=== PATIENT | female | born 1975 | race Caucasian/White ===

== ENCOUNTER 2017-06-13 11:05 | Inpatient (IN) ==
--- NOTE | 2017-06-12 22:08 | Discharge Summary ---
<GaylamartínSophia syed Teri - Last Filed: 06/12/17 22:04> Date of Encounter: 06/12/17 - Discharge Diagnosis (1) Arthritis of knee, left Priority: Primary Status: Acute (2) Status post total knee replacement, left Priority: Primary Status: Acute (3) COPD (chronic obstructive pulmonary disease) Priority: Secondary Status: Acute Qualifiers: COPD type: unspecified COPD Qualified Code(s): J44.9 - Chronic obstructive pulmonary disease, unspecified (4) Obesity Priority: Secondary Status: Chronic Qualifiers: Obesity type: due to excess calories Obesity classification: unspecified obesity classification Serious obesity comorbidity presence: without serious comorbidity Qualified Code(s): E66.09 - Other obesity due to excess calories; Z68.33 - Body mass index (BMI) 33.0-33.9, adult - Discharge Medications Home Medications: Aspirin Enteric Coated [Aspirin EC] 325 mg PO DAILY #21 tablet. 06/12/17 [Rx] OxyCODONE Immed Rel [Roxicodone 5 MG] 5 - 10 mg PO Q6HR PRN #40 tablet 06/12/17 [Rx] Acetaminophen [Tylenol] 1,000 mg PO Q6HR PRN 06/13/17 [History] L. Acidophilus/Pectin, [place] [Acidophilus Probiotic Capsule] 1 cap PO DAILY [History] Allergies/Adverse Reactions: Allergies No Known Allergies Allergy (Verified 06/13/17 11:57) Primary care physician: Sofi Huston DO - Patient Status Disposition: Transfer Inpatient Rehab Fac Condition: Good - Discharge Instructions Follow Up With: Sofi Huston DO [Resident] - - Hospital Course Hospital course: Ms. Ron is a 42 year old female - Time Spent with Patient Total time spent providing and/or coordinating discharge services: <Lucian Grier - Last Filed: 06/15/17 08:59> Date of Encounter: 06/15/17 Time of Encounter: 08:58 - Discharge Diagnosis (1) Arthritis of knee, left Priority: Primary Status: Chronic (2) Status post total knee replacement, left Priority: Primary Status: Acute (3) COPD (chronic obstructive pulmonary disease) Priority: Secondary Status: Chronic Qualifiers: COPD type: unspecified COPD Qualified Code(s): J44.9 - Chronic obstructive pulmonary disease, unspecified (4) Obesity Priority: Secondary Status: Chronic Qualifiers: Obesity type: due to excess calories Obesity classification: adult class 1 (BMI 30 ? 34.9) Serious obesity comorbidity presence: without serious comorbidity Body mass index: BMI 33.0-33.9 Qualified Code(s): E66.09 - Other obesity due to excess calories; Z68.33 - Body mass index (BMI) 33.0-33.9, adult (5) Acute blood loss anemia Priority: Primary Status: Acute Primary care physician: PCP NONE - Patient Status Functional capacity at discharge: uses cane/walker Overall status at discharge: patient is progressing back to baseline - Hospital Course Hospital course: Ms. Ron is a 42 year old female status post total knee replacement. Patient with hemoglobin 8.0 asymptomatic. The patient had an uneventful postoperative course. They received antibiotics and physical therapy and were discharged in stable condition. There will follow -up in the office in 2 weeks. - Time Spent with Patient Total time spent providing and/or coordinating discharge services:
--- NOTE | 2017-06-13 11:20 | Physician Discharge Referral ---
<Sophia Hall L - Last Filed: 06/13/17 11:18> ExtendedCare Referral Info Transfer To: [facility] Provider in Charge: Provider in Charge after Transfer: PCP Institutional Level of Care: Skilled - Diagnosis (1) Arthritis of knee, left Priority: Primary Status: Acute (2) Status post total knee replacement, left Priority: Primary Status: Acute (3) COPD (chronic obstructive pulmonary disease) Priority: Secondary Status: Acute (4) Obesity Priority: Secondary Status: Chronic Expected Duration of Placement: < 30 days Prognosis: Good Aware of Diagnosis: Patient Aware of Prognosis: Patient - Transfer Medications Home Medications: Aspirin Enteric Coated [Aspirin EC] 325 mg PO DAILY #21 tablet. 06/12/17 [Rx] OxyCODONE Immed Rel [Roxicodone 5 MG] 5 - 10 mg PO Q6HR PRN #40 tablet 06/12/17 [Rx] Acetaminophen [Tylenol] 1,000 mg PO Q6HR PRN 06/13/17 [History] L. Acidophilus/Pectin, [place] [Acidophilus Probiotic Capsule] 1 cap PO DAILY [History] Allergies/Adverse Reactions: Allergies No Known Allergies Allergy (Verified 06/13/17 11:57) - Respiratory Orders None Smoking Cessation: Smoking cessation has been advised. For more information, call the [employer] Tobacco Quit Line at 5-196-LNZJ-NOW. - Ancillary Orders May use pressure relief devices daily prn, May go on CHRISTIANO w/family/respon constitution party w /meds at nurse discretion PRN, May consult with Dentist, Director Of Land Acquisition, Tow Bar Driver PRN - Mobility Orders Chair, Ambulate - Rehabiliation Orders Rehab Potential: Good Rehab Orders: ROM Exercises, Evaluation for Physical Therapy, Evaluation for Occupational Therapy - Treatments Skin tear care topically daily PRN per policy List/Other: Left TKR Opsite dressing, leave intact until first post-operative visit. If dressing becomes >50% saturated, contact office, remove dressing and place appropriate dressing in its place. Do not allow for dressing to get wet. Jarrod in place. Plan to remove day #14-21 PT: Precautions x 6 weeks - Total Knee Precautions Apply cold therapy wrap 3-6x/day for 20 minutes at a time. Encourage ambulation throughout the day and incentive spirometer 10x/hour. Elevate affected extremity above heart as tolerated. Brace: Keep knee immobilizer on at night x 2 weeks. - Diet Orders Regular CERTIFICATION: I certify that the transfer of the above named patient to an Extended Care Facility is necessary for the continuing treatment of the diagnosis listed. The above information is true and accurate reflection of patient's current condition. Confidential - Redisclosure prohibited without a patient's written consent. <Lucian Grier - Last Filed: 06/15/17 08:58> - Diagnosis (1) Arthritis of knee, left Status: Chronic (2) Status post total knee replacement, left Status: Acute (3) COPD (chronic obstructive pulmonary disease) Status: Chronic (4) Obesity Status: Chronic - Respiratory Orders Smoking Cessation: Smoking cessation has been advised. For more information, call the [place] Tobacco Quit Line at 8-879-KLVG-NOW. CERTIFICATION: I certify that the transfer of the above named patient to an Extended Care Facility is necessary for the continuing treatment of the diagnosis listed. The above information is true and accurate reflection of patient's current condition. Confidential - Redisclosure prohibited without a patient's written consent.
--- NOTE | 2017-06-13 11:33 | History & Physical Report ---
Date of Encounter: 06/13/17 Time of Encounter: 11:33 24 Hour HP Update - Instructions Instructions: If the History and Physical is less than 30 days old and was completed prior to A.M. admission and or procedure and has NOT been updated on calendar day of procedure please complete this update prior to performing procedure. - Update Patient reports changes in Medical Condition: No Changes in examination, assessment, or condition: No Changes in Medication: No Preop tests/diagnostics Reviewed: Yes Surgery Remains Indicated: Yes Consent for Planned Operative Procedure(s) Verified: Yes - Pre-Operative Checklist Preoperative Checklist Indicated: No Prophylactic Antibiotic Ordered: Yes Is VTE Prophylaxis Indicated?: Yes
[2017-06-13] MEDS ORDERED: CeFAZolin Pre 2,000 MG/100 ML 2,000 MG/100 ML BAG IVPB ONE (11:44)
[2017-06-13] MEDS ORDERED: Albuterol 2.5 MG/3 ML NEBULIZER IH ONE (11:44)
[2017-06-13] MEDS ORDERED: Ringers Solution, Lactated 1,000 ML IVC SCH ×2 (11:45→17:24)
--- NOTE | 2017-06-13 11:54 | Anesthesia Evaluation PreOp ---
Date of Encounter: 06/13/17 Time of Encounter: 11:52 - Past History Planned Operation: Left total knee Cardiac History: Denies any Significant Hx Pulmonary History: Smoker, COPD (mild) LIVING MANAGER History: Seizures (hasn't had a seizure in several years; not on any anti- seizure medications) Other Medical History: Hepatic (Hep C) Anesthesia History: No Prior Anesthetic Complications Alcohol Use: rarely Drug use: none Medications and Allergies Ibuprofen [Motrin] 800 mg PO Q8HR PRN 10/05/16 [History] Nabumetone [Relafen] 500 mg PO BID 10/05/16 [History] TraZODone 50 mg PO BID 10/05/16 [History] Venlafaxine XR (24 HR) [Effexor XR] 37.5 mg PO DAILY 10/05/16 [History] Calcium Carb/Magnesium Hydrox [Rolaids Chewable Tablet] 1 tab PO Q4H PRN [History] Aspirin Enteric Coated [Aspirin EC] 325 mg PO DAILY #21 tablet. 06/12/17 [Rx] OxyCODONE Immed Rel [Roxicodone 5 MG] 5 - 10 mg PO Q6HR PRN #40 tablet 06/12/17 [Rx] Allergies No Known Allergies Allergy (Verified 06/13/17 11:42) - Meds/Allergy Pre-op Review Medications Reviewed: Yes Allergies Reviewed: Yes Beta Blockers on Current Med List: No Anesthesia Results - Labs Laboratory Tests 06/01/17 06/01/17 06/01/17 08:22 08:22 08:22 WBC 8.6 Hgb 16.7 H Plt Count 250 PT 10.7 INR 1.0 APTT 34.9 Sodium 140 Potassium 3.1 L Chloride 105 Carbon Dioxide 24 BUN 9 Creatinine 0.93 Est GFR ( Amer) > 60 Est GFR (Non-Af Amer) > 60 BUN/Creatinine Ratio 10 Glucose 59 L Calculated Osmolality 286 - Imaging EKG: report reviewed, image reviewed (SINUS RHYTHM POSSIBLE LEFT ATRIAL ENLARGEMENT INCOMPLETE RIGHT BUNDLE BRANCH BLOCK) Anesthesia Exam Last Vital Signs Temp 98.6 F 06/13/17 11:29 Pulse 74 06/13/17 11:29 Resp 18 06/13/17 11:29 BP 150/93 06/13/17 11:29 Pulse Ox 98 06/13/17 11:29 Weight: 97 kg NPO (# of Hours): >> 8 hrs - HEENT Pupil (Motor): Pupils equal, EOMI Mallampati: II Teeth: Normal Oral Opening: Greater than 3 - LIVING MANAGER LOC: Oriented LIVING MANAGER Motor: Normal RUE, Normal LUE, Normal RLE, Normal LLE, Normal Face - Cardiac Rhythm: Regular Murmur: None - Pulmonary Breath Sounds: bilateral Clear Respiratory Effort: Symmetrical Anesthesia Assess/Plan ASA Score: 3 Modified [place] Scale for Level of Consciousness: Cooperative, oriented, and tranquil Anesthetic Plan: General, Regional Monitoring Plan: Standard Monitors Recovery Plan: PACU
[2017-06-13] MEDS ORDERED: *HR* Propofol 200 MG/20 ML VIAL IVP ONE ×2 (13:03→14:28)
[2017-06-13] MEDS ORDERED: *HR* FentaNYL (PF) 100 MCG/2 ML VIAL ONE ×2 (13:03→14:12)
[2017-06-13] MEDS ORDERED: *HR* Midazolam HCl 2 MG/2 ML VIAL ONE (13:03)
[2017-06-13] MEDS ORDERED: Ondansetron 4 MG/2 ML VIAL ONE (13:05)
[2017-06-13] MEDS ORDERED: Dexamethasone 4 MG/ML VIAL ONE (13:05)
[2017-06-13] MEDS ORDERED: Lidocaine -MPF 2% 2 ML VIAL ONE (13:05)
[2017-06-13] MEDS ORDERED: *HR* Meperidine 25 MG/ML SYRINGE IVP PRN (13:51)
[2017-06-13] MEDS ORDERED: Ondansetron 4 MG/2 ML VIAL IVP ONE (13:51)
[2017-06-13] MEDS ORDERED: ROPIVACAINE HCL/PF 0.5% 30 ML VIAL ONE (14:03)
--- NOTE | 2017-06-13 14:35 | Anesthesia Procedures ---
Date of Encounter: 06/13/17 Time of Encounter: 14:20 Procedures: Anesthesia - Nerve Block Procedure Date: 06/13/17 Time: 14:20 Allergies/Adv Reactions: nkda Pre-op Diagnosis: Left knee pain Surgical Procedure: Left total knee Checklist: Correct Patient Identifier, Correct procedure, History checked Correct side: Left Blood Thinner: No Monitor Applied: EKG, BP, Pulse Oximetry Supplemental Oxygen via Nasal Cannula (L/min): 2 Sedation: Versed (mg): 2 Sedation: Fentanyl (mcg): 200 Indication: Post Op Analgesia Pre-op Neuro Deficits: No Block Type: Femoral, Other (IPAC) Ultrasound used: Yes Anatomy identified: Yes Visual spread of Local: Yes Neuro Stimulation: Yes Nerve Stimulator Range: 0.2 - 0.4 mA Smooth Injection of Local: Yes Pain with Injection of Local: No Prep: Chlorhexadine Needle: 22 x 50 mm Stimuplex Local: Ropivacaine Volume (cc): 30 Number of Attempts: 1 Complications: None/effective block
[2017-06-13] MEDS ORDERED: *HR* HYDROmorphone 2 MG/ML SYRINGE ONE ×2 (14:41→14:56)
[2017-06-13] MEDS ORDERED: Esmolol 100 MG/10 ML VIAL IVP ONE (15:12)
--- NOTE | 2017-06-13 15:13 | Orthopedic Operative Note ---
Date of procedure: 06/13/17 Pre-op diagnosis: Left knee arthritis Post-op diagnosis: same Procedure: Procedure: Left Total knee replacement Estimated blood loss: 500 cc Hardware: Metal and polyethylene replacement. Arthrex Femur: 4 Tibia: 5 PS insert: 12 Patella: 34 Exam Under anesthesia: Valgus alignment full flexion and extension Procedural Notes: Grade 4 arthritic changes all 3 compartments. Operative procedure: The patient was brought to the operating room and placed on the operating room table. After general anesthesia was administered the operative knee was examined. Findings were noted in the exam under anesthesia. The operative extremity was prepped and draped in sterile surgical fashion. The patient received IV antibiotics prior to skin incision. A standard midline incision was made centered over the patella. The incision was made through the skin and subcutaneous tissue. A medial parapatellar tendon approach was performed. Care was taken to preserve tissue along the medial aspect of the patella. And to protect the patella tendon. The deep MCL was released off the medial tibia. The infra patella fat pad was excised. Knee was brought into flexion. The patient was noted to have grade 4 arthritic changes all 3 compartments. The entry hole was made for the intramedullary femoral guide. The guide was seated in 6 degrees of valgus. Anterior cut was made followed by the distal cut. The ACL the PCL the medial and the lateral menisci were excised. The tibia was subluxed forward. The entry hole was made for the intramedullary tibial guide. Guide was seated to resect 2 mm off the more abnormal side. The knee was brought into flexion the distal femur was sized 4. The femoral guide was seated , the anterior cut was made followed by the posterior condylar cut, followed by the chamfer cuts. The finishing guide was seated the box cut was made and the lug holes were drilled. The tibia was sized 5, the tibial tray was seated and prepared with the large drill followed by the fin cutter. Trial reduction revealed full extension no varus valgus instability with the appropriate 12 PS Sarina. The patella was everted and cut was made at the level of the insertion of the quadriceps and patella tendon. The patella was sized 34 the guide was seated and the lug holes are drilled. Trial reduction revealed excellent patella tracking. All trial components were removed all bony surfaces were irrigated. The tibia was cemented first followed by the femur. The 12 PS Sarina was seated and the knee was brought into full extension. The patella was cemented and held in place with the patellar holding clamp. After the cement had hardened, the knee sat for 2 minutes with a Betadine saline solution. The knee was then irrigated out with 2 L of pulse irrigation. The PA close the knee. The extensor mechanism was closed with #2 FiberWire suture and #2 PDS suture. The subcutaneous tissue was then irrigated and closed deep with #1 PDS suture superficially with 0 PDS suture and skin was closed with skin giovanna. The patient was then placed in a sterile dressing and a postoperative brace extubated and transferred to recovery room in stable condition. Anesthesia: RANI Surgeon: Lucian Grier Director Information: Sophia Hall Condition: stable Disposition: PACU
[2017-06-13] MEDS: *HR* HYDROmorphone (PF) 1 MG/ML SYRINGE IVP PRN ×10 (15:53→21:23)
[2017-06-13] MEDS ORDERED: Ketorolac 30 MG/ML VIAL IVP ONE (16:00)
[2017-06-13] MEDS ORDERED: Acetaminophen IV 1,000 MG/100 ML INFUS..BTL IVPB ONE (16:01)
[2017-06-13] MEDS ORDERED: *HR* HYDROmorphone (PF) 1 MG/ML SYRINGE IVP PRN (16:35)
[2017-06-13 16:44] LABS: Hematocrit 38.7 % (35.3-44.9); Hemoglobin 13.4 g/dL (11.5-15.4)
[2017-06-13] MEDS ORDERED: *HR* Labetalol 20 MG/4 ML SYRINGE IVP ONE ×2 (16:53→16:55)
[2017-06-13] MEDS ORDERED: Lidocaine -MPF 2% 5 ML VIAL ONE (17:04)
[2017-06-13] MEDS ORDERED: MOM Conc 10 ML UD.LIQ PO PRN (17:24)
[2017-06-13] MEDS ORDERED: Naloxone 0.4 MG/ML INJ IVP PRN (17:24)
[2017-06-13] MEDS ORDERED: *HR* OxyCODONE Immed Rel 5 MG TABLET PO PRN (17:24)
[2017-06-13] MEDS ORDERED: Sennosides 8.6 MG TABLET PO PRN (17:24)
[2017-06-13] MEDS ORDERED: *HR* Enoxaparin 30 MG/0.3 ML SYRINGE SQ SCH (18:00)
[2017-06-13] MEDS: *HR* Enoxaparin 30 MG/0.3 ML SYRINGE SQ SCH (18:27)
[2017-06-13] MEDS: *HR* OxyCODONE Immed Rel 5 MG TABLET PO PRN ×2 (18:28→23:23)
[2017-06-13] MEDS: ceFAZolin 2,000 MG in D5% in Water 100 ML IVPB SCH (21:28)
[2017-06-14] MEDS: Ondansetron 4 MG/2 ML VIAL IVP PRN (00:25)
[2017-06-14] MEDS: *HR* HYDROmorphone (PF) 1 MG/ML SYRINGE IVP PRN ×7 (01:28→22:03)
[2017-06-14] MEDS: *HR* OxyCODONE Immed Rel 5 MG TABLET PO PRN ×4 (03:51→20:39)
[2017-06-14] MEDS: ceFAZolin 2,000 MG in D5% in Water 100 ML IVPB SCH (05:12)
[2017-06-14] MEDS: *HR* Enoxaparin 30 MG/0.3 ML SYRINGE SQ SCH ×2 (05:13→17:41)
[2017-06-14 06:24] LABS: Hematocrit 31.7 % (35.3-44.9)
[2017-06-14 06:42] LABS: BUN/Creatinine Ratio 16 (6-26); Blood Urea Nitrogen 13 mg/dL (7-20); Carbon Dioxide 26 mEq/L (19-29); Chloride 103 mEq/L (98-109); Glucose 110 mg/dL (70-99); Potassium 4.1 mEq/L (3.5-4.5); Sodium 135 mEq/L (136-145); eGFR For African Americans > 60 (> 60); eGFR For Non-African Americans > 60 (> 60)
[2017-06-14 06:43] LABS: Calcium 8.9 mg/dL (8.6-10.8); Osmolality,Calculated 281 (280-300)
[2017-06-14] MEDS: ACIDOPHILUS PO SCH (07:45)
[2017-06-14] MEDS: PECTIN CITRUS PO SCH (07:45)
[2017-06-14] MEDS ORDERED: Acetaminophen IV 1,000 MG/100 ML INFUS..BTL IVPB PRN (10:24)
[2017-06-14] MEDS: Ketorolac 30 MG/ML VIAL IVP PRN ×2 (12:02→19:01)
--- NOTE | 2017-06-14 12:13 | Orthopedics Progress Note ---
Date of Encounter: 06/14/17 Time of Encounter: 08:15 - Assessment and Plan (1) Arthritis of knee, left Current Visit: Yes Status: Chronic Left TKR 06/13/17 POD#1 Patient doing well, A&O in chair Vitals stable - Afebrile. H/H - Stable - 31.7 asymptomatic Plan: Continue in knee immobilizer at night x 2 weeks, Knee precautions x 6 weeks. LLE: WBAT Added Tylenol PO, Toradol for additional pain control D/C to ECF per patient request like tomorrow - awaiting Auth* (2) Status post total knee replacement, left Current Visit: Yes Status: Acute (3) COPD (chronic obstructive pulmonary disease) Current Visit: Yes Status: Chronic Qualifiers: COPD type: unspecified COPD Qualified Code(s): J44.9 - Chronic obstructive pulmonary disease, unspecified (4) Obesity Current Visit: Yes Status: Chronic Qualifiers: Obesity type: due to excess calories Obesity classification: adult class 1 (BMI 30 ? 34.9) Serious obesity comorbidity presence: without serious comorbidity Body mass index: BMI 33.0-33.9 Qualified Code(s): E66.09 - Other obesity due to excess calories; Z68.33 - Body mass index (BMI) 33.0-33.9, adult Subjective Principal diagnosis: Left TKR 06/13/17 Interval history: Left TKR 06/13/17 POD#1 Patient doing well, A&O in chair Vitals stable - Afebrile. H/H - Stable - .7 asymptomatic LLE: Minimal swelling, no erythema or ecchymosis noted. No calf tenderness or warmth noted. ROM limited. NV intact distally. Plan: Continue in knee immobilizer at night x 2 weeks, Knee precautions x 6 weeks. LLE: WBAT Added Tylenol PO, Toradol for additional pain control D/C to ECF per patient request like tomorrow - awaiting Auth* Objective Vital signs: Vital Signs Temp Pulse Resp BP Pulse Ox 06/14/17 11:02 98.0 F 101 18 150/91 96 06/14/17 06:41 98.3 F 91 20 155/81 93 06/14/17 05:00 98.2 F 97 18 119/82 99 06/14/17 00:40 98.4 F 97 17 120/86 98 06/13/17 21:36 98.1 F 107 18 117/85 95 06/13/17 18:31 98.4 F 100 16 155/98 95 06/13/17 18:09 98.5 F 101 16 130/84 93 06/13/17 17:32 98.2 F 100 15 144/97 94 06/13/17 17:17 99.5 F 114 26 134/99 94 06/13/17 17:07 95 28 142/88 95 06/13/17 16:57 95 26 138/105 94 06/13/17 16:47 99.5 F 128 28 165/121 95 06/13/17 16:37 130 28 167/112 95 06/13/17 16:27 120 22 148/104 92 06/13/17 16:17 98.3 F 109 18 139/106 96 06/13/17 16:07 121 30 143/100 95 06/13/17 15:57 122 30 121/95 95 06/13/17 15:47 97.2 F L 100 12 102/54 97 06/13/17 14:10 79 155/90 96 Intake and Output 06/13/17 06/14/17 06/14/17 23:59 07:59 15:59 Intake Total 100 / 100 500 / 500 480 / 480 Output Total 200 / 200 Balance 100 / 100 300 / 300 480 / 480 Intake: IV Fluids 100 / 100 Ancef 2,000 MG In 100 / 100 Dextrose 5% 100 ML @ 200 mls/hr IVPB Q8H [facility] Rx#: [id number] Oral 500 / 500 480 / 480 Output: Urine 200 / 200 Other: Meal Breakfast Percent of Meal Consumed 100% # Voids 2 Incision: clean and dry - Labs CBC & BMP: 06/14/17 05:54 06/14/17 05:54 Labs: Abnormal lab results Hgb 11.0 g/dL (11.5-15.4) L D 06/14/17 05:54 Hct 31.7 % (35.3-44.9) L 06/14/17 05:54 Sodium 135 mEq/L (136-145) L 06/14/17 05:54 Glucose 110 mg/dL (70-99) H 06/14/17 05:54 - VTE Documentation of Mechanical Device: Venous foot pump, device Consult Discharge Plan - Plan Referrals: Sofi Huston DO [Resident] -
--- NOTE | 2017-06-14 12:32 | Event Note ---
Date of Encounter: 06/14/17 Time of Encounter: 12:32 PCR - POD#1 - Left TKR 06/13/17 Patient seen at bedside. Pain control: Added Tylenol PO and Toradol 06/14/17 - Participating in PT. All questions and concerns addressed. Educated on use of incentive spirometer, ambulation, and hydration. Patient educated on post-operative restrictions and care. Addressed: Pain control D/C plan: Wanting ECF
[2017-06-14] MEDS: Ondansetron ODT 4 MG TAB.RAPDIS SL PRN (14:19)
[2017-06-14] MEDS ORDERED: *HR* HYDROmorphone (PF) 1 MG/ML SYRINGE IVP SCH (20:00)
[2017-06-14] MEDS: Temazepam 15 MG CAPSULE PO PRN (23:09)
[2017-06-15] MEDS: *HR* HYDROmorphone (PF) 1 MG/ML SYRINGE IVP PRN ×3 (02:06→10:31)
[2017-06-15] MEDS: Ondansetron 4 MG/2 ML VIAL IVP PRN ×2 (02:14→09:11)
[2017-06-15] MEDS: Ketorolac 30 MG/ML VIAL IVP PRN ×2 (03:01→09:16)
[2017-06-15] MEDS: *HR* OxyCODONE Immed Rel 5 MG TABLET PO PRN ×2 (04:27→12:21)
[2017-06-15] MEDS: *HR* Enoxaparin 30 MG/0.3 ML SYRINGE SQ SCH ×2 (04:27→17:07)
[2017-06-15 05:53] LABS: Hematocrit 26.7 % (35.3-44.9)
[2017-06-15 06:11] LABS: BUN/Creatinine Ratio 16 (6-26); Blood Urea Nitrogen 11 mg/dL (7-20); Carbon Dioxide 31 mEq/L (19-29); Chloride 103 mEq/L (98-109); Glucose 113 mg/dL (70-99); Osmolality,Calculated 282 (280-300); Potassium 4.4 mEq/L (3.5-4.5); Sodium 136 mEq/L (136-145); eGFR For African Americans > 60 (> 60); eGFR For Non-African Americans > 60 (> 60)
[2017-06-15] MEDS: Ondansetron ODT 4 MG TAB.RAPDIS SL PRN ×2 (06:14→14:26)
--- NOTE | 2017-06-15 09:00 | Orthopedics Progress Note ---
Date of Encounter: 06/15/17 Time of Encounter: 08:59 - Assessment and Plan (1) Arthritis of knee, left Current Visit: Yes Status: Chronic (2) Status post total knee replacement, left Current Visit: Yes Status: Acute (3) COPD (chronic obstructive pulmonary disease) Current Visit: Yes Status: Chronic Qualifiers: COPD type: unspecified COPD Qualified Code(s): J44.9 - Chronic obstructive pulmonary disease, unspecified (4) Obesity Current Visit: Yes Status: Chronic Qualifiers: Obesity type: due to excess calories Obesity classification: adult class 1 (BMI 30 ? 34.9) Serious obesity comorbidity presence: without serious comorbidity Body mass index: BMI 33.0-33.9 Qualified Code(s): E66.09 - Other obesity due to excess calories; Z68.33 - Body mass index (BMI) 33.0-33.9, adult (5) Acute blood loss anemia Current Visit: Yes Status: Acute Subjective Principal diagnosis: Left TKR 06/13/17 Interval history: Patient was seen this morning doing well without complaints. Afebrile vital signs stable. Operative extremity: Neurovascularly intact Dressing clean dry and intact Calves nontender Assessment and plan: Continue with postoperative care Hemoglobin 8.0, asymptomatic discharge today Objective Vital signs: Vital Signs Temp Pulse Resp BP Pulse Ox 06/15/17 07:21 108 17 146/83 94 06/15/17 05:09 98.5 F 109 17 163/101 97 06/15/17 00:49 98.0 F 102 17 157/90 99 06/14/17 18:55 98.6 F 119 18 130/84 99 06/14/17 15:24 98.4 F 103 18 128/83 98 06/14/17 11:02 98.0 F 101 18 150/91 96 Intake and Output 06/14/17 06/15/17 06/15/17 23:59 07:59 15:59 Intake Total 240 / 240 700 / 700 Balance 240 / 240 700 / 700 Intake: Oral 240 / 240 700 / 700 Other: Meal Dinner Percent of Meal Consumed 75% # Voids 4 - Labs CBC & BMP: 06/15/17 05:12 06/15/17 05:12 Labs: Abnormal lab results Hgb 9.0 g/dL (11.5-15.4) L D 06/15/17 05:12 Hct 26.7 % (35.3-44.9) L 06/15/17 05:12 Carbon Dioxide 31 mEq/L (19-29) H 06/15/17 05:12 Glucose 113 mg/dL (70-99) H 06/15/17 05:12 - VTE Documentation of Mechanical Device: Venous foot pump, device Consult Discharge Plan - Plan Referrals: Sofi Huston DO [Resident] -
[2017-06-15] MEDS: ACIDOPHILUS PO SCH (10:32)
[2017-06-15] MEDS: PECTIN CITRUS PO SCH (10:32)
[2017-06-15] MEDS ORDERED: Scopolamine Patch 1.5 MG PATCH.TD72 TD ONE (14:38)
--- NOTE | 2017-06-15 14:52 | Event Note ---
Date of Encounter: 06/15/17 Time of Encounter: 11:50 PCR - POD#2 - Left TKR 06/13/17 Patient seen at bedside. Pain control: Adequate - patient has been getting IV pain medication - in anticipation of upcoming discharge to ECF, d/c all IV pain medications and conver to Percocet in place of oxycodone and keep prn tylenol for breakthrough, add muscle relaxer and add PO Ibuprofen as well as continue Lidoderm patch in place behind knee. Tylenol PO and Toradol had been added 06/14/17. Participating in PT. All questions and concerns addressed. Educated on use of incentive spirometer, ambulation, and hydration. Patient educated on post-operative restrictions and care. Addressed: Pain control D/C plan: Awaiting ECF auth
[2017-06-15] MEDS ORDERED: *HR* OxyCODONE/APAP 5/325 TABLET PO PRN (14:53)
[2017-06-15] MEDS: tiZANidine 4 MG TABLET PO PRN (14:59)
[2017-06-15] MEDS: *HR* OxyCODONE/APAP 10/325 TABLET PO PRN ×2 (16:31→20:35)
[2017-06-15] MEDS: Ibuprofen 600 MG TABLET PO SCH (17:07)
[2017-06-15] MEDS: Gabapentin 300 MG CAPSULE PO SCH (21:02)
[2017-06-15] MEDS: Temazepam 15 MG CAPSULE PO PRN (21:02)
[2017-06-16] MEDS: Ibuprofen 600 MG TABLET PO SCH ×5 (00:10→23:01)
[2017-06-16] MEDS: tiZANidine 4 MG TABLET PO PRN ×4 (00:12→23:01)
[2017-06-16] MEDS: *HR* OxyCODONE/APAP 10/325 TABLET PO PRN ×6 (00:39→22:30)
[2017-06-16] MEDS: *HR* Enoxaparin 30 MG/0.3 ML SYRINGE SQ SCH ×2 (07:20→18:46)
--- NOTE | 2017-06-16 07:55 | Orthopedics Progress Note ---
Date of Encounter: 06/16/17 Time of Encounter: 07:55 - Assessment and Plan (1) Arthritis of knee, left Current Visit: Yes Status: Chronic (2) Status post total knee replacement, left Current Visit: Yes Status: Acute (3) COPD (chronic obstructive pulmonary disease) Current Visit: Yes Status: Chronic Qualifiers: COPD type: unspecified COPD Qualified Code(s): J44.9 - Chronic obstructive pulmonary disease, unspecified (4) Obesity Current Visit: Yes Status: Chronic Qualifiers: Obesity type: due to excess calories Obesity classification: adult class 1 (BMI 30 ? 34.9) Serious obesity comorbidity presence: without serious comorbidity Body mass index: BMI 33.0-33.9 Qualified Code(s): E66.09 - Other obesity due to excess calories; Z68.33 - Body mass index (BMI) 33.0-33.9, adult (5) Acute blood loss anemia Current Visit: Yes Status: Acute Subjective Principal diagnosis: Left TKR 06/13/17 Interval history: Patient was seen this morning doing well without complaints. Afebrile vital signs stable. Operative extremity: Neurovascularly intact Dressing clean dry and intact Calves nontender Assessment and plan: Continue with postoperative care discharge today Objective Vital signs: Vital Signs Temp Pulse Resp BP Pulse Ox 06/16/17 00:05 97.8 F 107 16 154/94 100 06/15/17 19:50 98.4 F 92 17 144/84 100 06/15/17 16:21 98.6 F 111 16 108/61 98 06/15/17 11:10 98.6 F 106 16 135/84 99 Intake and Output 06/15/17 06/15/17 06/16/17 15:59 23:59 07:59 Intake Total 500 / 500 240 / 240 Balance 500 / 500 240 / 240 Intake: Oral 500 / 500 240 / 240 Other: Meal Breakfast Dinner Percent of Meal Consumed 40% 50% # Voids 1 1 - Labs CBC & BMP: 06/15/17 05:12 06/15/17 05:12 Labs: Abnormal lab results Hgb 9.0 g/dL (11.5-15.4) L D 06/15/17 05:12 Hct 26.7 % (35.3-44.9) L 06/15/17 05:12 Carbon Dioxide 31 mEq/L (19-29) H 06/15/17 05:12 Glucose 113 mg/dL (70-99) H 06/15/17 05:12 - VTE Documentation of Mechanical Device: Venous foot pump, device Consult Discharge Plan - Plan Referrals: Sofi Huston DO [Resident] -
[2017-06-16 09:55] LABS: Hemoglobin 8.4 g/dL (11.5-15.4)
[2017-06-16] MEDS: Gabapentin 300 MG CAPSULE PO SCH ×2 (10:01→20:31)
[2017-06-16] MEDS: PECTIN CITRUS PO SCH (10:02)
[2017-06-16] MEDS: ACIDOPHILUS PO SCH (10:02)
[2017-06-16 10:54] LABS: Hematocrit 25.2 % (35.3-44.9)
--- NOTE | 2017-06-16 11:35 | Event Note ---
Date of Encounter: 06/16/17 Time of Encounter: 11:33 PCR - POD#2 - Left TKR 06/13/17 Patient seen at bedside. H/H 8.02/22 - Asymptomatic. Pain control: Adequate - IV pain medication D/C'ed - 06/16, started on Gabapentin in anticipation of upcoming discharge to ECF, d/c all IV pain medications and conver to Percocet in place of oxycodone and keep prn tylenol for breakthrough, add muscle relaxer and add PO Ibuprofen as well as continue Lidoderm patch in place behind knee. Tylenol PO and Toradol had been added 06/14/17. Participating in PT. All questions and concerns addressed. Educated on use of incentive spirometer, ambulation, and hydration. Patient educated on post-operative restrictions and care. Addressed: Pain control D/C plan: ECF today.
[2017-06-16] MEDS: Temazepam 15 MG CAPSULE PO PRN (20:35)
[2017-06-17] MEDS: *HR* OxyCODONE/APAP 10/325 TABLET PO PRN ×3 (02:31→10:31)
--- NOTE | 2017-06-17 05:54 | Orthopedics Progress Note ---
Date of Encounter: 06/17/17 Time of Encounter: 05:53 - Assessment and Plan (1) Arthritis of knee, left Current Visit: Yes Status: Chronic (2) Status post total knee replacement, left Current Visit: Yes Status: Acute (3) COPD (chronic obstructive pulmonary disease) Current Visit: Yes Status: Chronic Qualifiers: COPD type: unspecified COPD Qualified Code(s): J44.9 - Chronic obstructive pulmonary disease, unspecified (4) Obesity Current Visit: Yes Status: Chronic Qualifiers: Obesity type: due to excess calories Obesity classification: adult class 1 (BMI 30 ? 34.9) Serious obesity comorbidity presence: without serious comorbidity Body mass index: BMI 33.0-33.9 Qualified Code(s): E66.09 - Other obesity due to excess calories; Z68.33 - Body mass index (BMI) 33.0-33.9, adult (5) Acute blood loss anemia Current Visit: Yes Status: Acute Subjective Principal diagnosis: Left TKR 06/13/17 Interval history: Patient was seen this morning doing well without complaints. Afebrile vital signs stable. Operative extremity: Neurovascularly intact Dressing clean dry and intact Calves nontender Assessment and plan: Continue with postoperative care discharge today Objective Vital signs: Vital Signs Temp Pulse Resp BP Pulse Ox 06/17/17 00:54 98.1 F 92 16 133/79 94 06/16/17 20:27 98.7 F 86 16 117/71 100 06/16/17 16:24 98.3 F 88 14 114/78 100 06/16/17 11:40 98.3 F 81 14 111/74 96 06/16/17 07:57 98.2 F 103 14 128/85 100 Intake and Output 06/16/17 06/16/17 06/17/17 15:59 23:59 07:59 Intake Total 500 / 500 500 / 500 Balance 500 / 500 500 / 500 Intake: Oral 500 / 500 500 / 500 Other: Meal Breakfast Percent of Meal Consumed 75% # Voids 1 1 Weight 99.4 kg Patient Weight 06/17/17 23:59 Weight 99.4 kg - Labs CBC & BMP: 06/16/17 09:45 06/15/17 05:12 Labs: Abnormal lab results Hgb 8.4 g/dL (11.5-15.4) L 06/16/17 09:45 Hct 25.2 % (35.3-44.9) L 06/16/17 09:45 Carbon Dioxide 31 mEq/L (19-29) H 06/15/17 05:12 Glucose 113 mg/dL (70-99) H 06/15/17 05:12 - VTE Documentation of Mechanical Device: Venous foot pump, device Consult Discharge Plan - Plan Referrals: Sofi Huston DO [Resident] - Prescriptions: Gabapentin [Neurontin] 300 mg PO BID #28 capsule
[2017-06-17] MEDS: *HR* Enoxaparin 30 MG/0.3 ML SYRINGE SQ SCH (06:14)
[2017-06-17] MEDS: Ibuprofen 600 MG TABLET PO SCH (06:14)
[2017-06-17] MEDS: tiZANidine 4 MG TABLET PO PRN (07:01)
[2017-06-17] MEDS: ACIDOPHILUS PO SCH (09:24)
[2017-06-17] MEDS: PECTIN CITRUS PO SCH (09:24)
[2017-06-17] MEDS: Gabapentin 300 MG CAPSULE PO SCH (09:26)
== END 2017-06-17 12:15 | DRG 302 ==
LOC: SAMDAY 11:05 → 3NENU 17:24
PROVIDERS: ADMIT Orthopaedic Surgery; ATTEND Orthopaedic Surgery